=== PATIENT | female | born 1980 | race African-American/Black ===

== ENCOUNTER 2016-09-23 22:50 | Emergency (ER) | payer OTHER ==
[~2016-09-23] VITALS: Ht 165.1 cm; Wt 81.6 kg
[~2016-09-23 22:50] MED LIST: HYDR-971 PO; ORPH100T PO; PRED50TA PO
[2016-09-23] MEDS ORDERED: ORPHENADRINE CITRATE 60 MG/2 ML VIAL. IM ONE (23:30)
[2016-09-23] MEDS ORDERED: KETOROLAC TROMETHAMINE 60 MG/2 ML INJ. IM ONE (23:30)
[2016-09-23] MEDS ORDERED: METH-37 PO (23:59)
[2016-09-23] MEDS ORDERED: NABU500T PO (23:59)
[2016-09-23] MEDS ORDERED: PRED20TA PO (23:59)
--- NOTE | 2016-09-24 | PHYS DOC ---
Past Medical History Past Medical History: No Pertinent History, Other Additional Past Medical Histor: cronic back pain Past Surgical History: Alcohol Use: Occasionally Drug Use: None Adult General Chief Complaint Chief Complaint: BACK PAIN - NO INJURY HPI HPI Patient is a 36 year old female brought by EMS from home with the complaint of back pain. Patient's boyfriend called 911. They don't have a car and he had to stay home with her baby. Patient states she has had back pain ever since she had an epidural when she had her baby who is now 8 years old. She at first didn' t know what she did that might have flared up her pain, but as we discussed it, she did say she moved her mattress a few days ago. She's been having worsened pain in her low back, going down into her buttocks and down the back of her legs bilaterally. The patient states "I can't walk" but the paramedics state that the patient walked from in her house and assisted out to get onto their cart. The patient has not taken anything for pain. She denies UTI symptoms. She denies possibility of . Review of Systems Review of Systems Constitutional: Denies fever or chills [] Respiratory: Denies cough or shortness of breath [] GI: Denies abdominal pain, nausea, vomiting, bloody stools or diarrhea [] : Denies dysuria or hematuria [] Musculoskeletal: As in history of present illness Current Medications Current Medications Current Medications Medications (Trade) Dose Ordered Sig/Devorah Start Time Stop Time Status Last Admin Dose Admin Ketorolac Tromethamine (Toradol Im) 60 mg 1X ONCE 09/23/16 23:30 09/23/16 23:31 DC 09/23/16 23:22 60 MG Orphenadrine Citrate (Norflex) 60 mg 1X ONCE 09/23/16 23:30 09/23/16 23:31 DC 09/23/16 23:25 60 MG Prednisone (Prednisone) 50 mg 1X ONCE 09/24/16 00:00 09/24/16 00:01 UNV Allergies Allergies Allergies Coded Allergies Type Severity Reaction Last Updated Verified No Known Drug Allergies 04/24/14 No Physical Exam Physical Exam Constitutional: Well developed, well nourished, crying loudly, alert, mentating normally, moving all 4 extremities well without difficulty HENT: Normocephalic, atraumatic, bilateral external ears normal, nose normal. [] Eyes: conjunctiva normal, no discharge. [] Neck: Normal range of motion, no stridor. [] Cardiovascular:Heart rate regular rhythm, no murmur [] Lungs & Thorax: Bilateral breath sounds clear to auscultation [] Abdomen: Bowel sounds normal, soft, no tenderness, no masses, no pulsatile masses. [] Skin: Warm, dry, no erythema, no rash. [] Back: No tenderness, no CVA tenderness. Patient indicates area of pain over the low lumbar/presacral area, there is no overlying skin abnormality or swelling, nontender to palpation. Also indicates the area of pain to the mid but I asked bilaterally, no abnormality noted. Extremities: No tenderness, no cyanosis, no clubbing, ROM intact, no edema. DTRs 2 over 4 at both knees. Strength is 5 over 5 and equal bilaterally with movement of both lower extremities including dorsiflexion of the great toe. Neurologic: Alert and oriented X 3, normal motor function, normal sensory function, no focal deficits noted. [] Current Patient Data Vital Signs Vital Signs Date Time Temp Pulse Resp B/P (MAP) Pulse Ox O2 Delivery O2 Flow Rate FiO2 09/23/16 22:52 98.2 77 18 114/69 (84) 98 Room Air 98.2 Lab Values Laboratory Tests Test 09/23/16 22:22 POC Urine HCG, Qualitative Hcg negative (Negative) EKG EKG [] Radiology/Procedures Radiology/Procedures [] Course & Med Decision Making Course & Med Decision Making Pertinent Labs and Imaging studies reviewed. (See chart for details) 36-year-old female with a history of back pain presents by EMS from home with exacerbation of back pain. Patient's neuro exam is normal with good strength and reflexes in both lower extremities. She is initially crying and sobbing in pain, but after she was given an injection of Toradol and Norflex and wrapped up in some warm blankets, she curled up on the cart and appeared much more comfortable. She stated that she is sleepy. I was able to talk to the patient some more and I believe that some of her pain is likely radiculopathy. We will treat that with a dose of oral prednisone. See instructions for plan. [] Dragon Disclaimer Dragon Disclaimer This electronic medical record was generated, in whole or in part, using a voice recognition dictation system. Departure Departure Impression: Primary Impression: Back pain Additional Impression: Sciatica Disposition: 01 HOME, SELF-CARE Condition: IMPROVED Referrals: NO PCP (PCP) Patient Instructions: Back Pain, Adult, [id number] Additional Instructions: Relafen as directed, which is a strong anti-inflammatory pain reliever. Norflex as directed, which is a muscle relaxer. Prednisone as directed, which helps with nerve pain, it is a strong anti- inflammatory. Use ice 15-20 minutes out of every 1-2 hours. Scripts Methocarbamol (ROBAXIN) 500 Mg Tablet 1 TAB PO BID for back pain, #20 TAB Prov: TIEN ZEPEDA MD 09/23/16 Prednisone (PREDNISONE) 20 Mg Tablet 40 MG PO DAILY for back pain for 5 Days, #10 TAB Prov: TIEN ZEPEDA MD 09/23/16 Nabumetone (NABUMETONE) 500 Mg Tablet 1 TAB PO BID for back pain, #20 TAB Prov: TIEN ZEPEDA MD 09/23/16 Problem Qualifiers TIEN ZEPEDA MD Sep 23, 2016 23:59
[2016-09-24 00:30] VITALS: BP 118/67
[2016-09-24] MEDS ORDERED: predniSONE 20 MG TABLET PO ONE (00:30)
== END 2016-09-24 00:40 | disposition home or self-care (01) ==
LOC: ER 22:50
DX: M54.40 Lumbago with sciatica, unspecified side (principal); G89.29 Other chronic pain
CPT/HCPCS: 81025; 96372; 99284; J1885; J2360; J7512

== ENCOUNTER 2019-02-03 07:03 | Emergency (ER) | payer SELFPAY ==
[~2019-02-03] VITALS: Ht 165.1 cm; Wt 81.6 kg
[~2019-02-03 07:03] MED LIST changes: +HYDR-3164 PO; -HYDR-971 PO; +METH-37 PO; +NABU500T PO; +PRED20TA PO
[2019-02-03 07:59] LABS: BASO # 0.1 x10^3/uL (0.0-0.2); BASO % 1 % (0-3); EOS # 0.2 x10^3/uL (0.0-0.7); EOS % 2 % (0-3); HEMATOCRIT 41.6 % (36.0-47.0); HEMOGLOBIN 14.2 g/dL (12.0-15.5); LYMPH # 3.6 x10^3/uL (1.0-4.8); LYMPH % 42 % (24-48); MEAN CORPUSCULAR HEMOGLOBIN 32 pg (25-35); MEAN CORPUSCULAR HGB CONC 34 g/dL (31-37); MEAN CORPUSCULAR VOLUME 93 fL (79-100); MONO # 0.7 x10^3/uL (0.0-1.1); MONO % 8 % (0-9); NEUT % 47 % (31-73); PLATELET COUNT 391 x10^3/uL (140-400); RED BLOOD COUNT 4.46 x10^6/uL (3.50-5.40); RED CELL DISTRIBUTION WIDTH 13.4 % (11.5-14.5); WHITE BLOOD COUNT 8.6 x10^3/uL (4.0-11.0)
[2019-02-03] MEDS ORDERED: IV NORMAL SALINE 1000ML BAG 1,000 ML IV ONE (08:00)
--- NOTE | 2019-02-03 08:05 | RAD ---
AP chest. HISTORY: Dizziness, right-sided facial numbness AP view was taken of the chest. Lungs are clear. Heart is normal in size. There is no pleural effusion. IMPRESSION: 1. No acute chest disease. Electronically signed by: Leonardo Hastings MD (02/03/2019 8:02 AM) [id number]
--- NOTE | 2019-02-03 08:07 | RAD ---
CT CODE STROKE HEAD WO Clinical indications: Facial numbness and dizziness COMPARISON: None available. Technique: Noncontrast axial cross sectional scanning of the head was performed. PQRS compliance Statement One or more of the following individualized dose reduction techniques were utilized for this study: 1. Automated exposure control 2. Adjustment of the mA and/or kV according to patient size 3. Use of iterative reconstruction technique Findings: No acute intracranial hemorrhage or midline shift or mass-effect or hydrocephalus or extra-axial fluid collection is seen. No focal hypodense area or sulci effacement is seen to indicate an acute infarct or edema radiographically. No skull fracture or pneumocephalus is seen. No opacification of the mastoid sinuses or the middle ear cavities or the paranasal sinuses is seen. The maxillary sinuses are not completely seen in this study. Impression: No acute intracranial abnormality is seen. FOR INTERNAL CODING PURPOSES Critical result: Findings discussed with Dr. RUCHI NELSON at 02/03/2019 8:05 AM. RESULT CODE: (C) Electronically signed by: Erick Morales MD (02/03/2019 8:05 AM) [facility]
[2019-02-03 08:09] LABS: PROTHROMBIN TIME PATIENT 12.3 SEC (11.7-14.0)
[2019-02-03 08:11] LABS: ALBUMIN 3.3 g/dL (3.4-5.0); ALBUMIN/GLOBULIN RATIO 0.8 (1.0-1.7); CALCIUM 8.6 mg/dL (8.5-10.1); GFR 75.1; POTASSIUM 3.8 mmol/L (3.5-5.1); TOTAL BILIRUBIN 0.3 mg/dL (0.2-1.0); TOTAL PROTEIN 7.4 g/dL (6.4-8.2)
[2019-02-03 08:29] LABS: BILIRUBIN,URINE NEGATIVE (NEG); CLARITY,URINE CLEAR; COLOR,URINE YELLOW; NITRITE,URINE NEGATIVE (NEG); PROTEIN,URINE NEGATIVE (NEG-TRACE)
[2019-02-03] MEDS ORDERED: ONDANSETRON PF 4 MG/2 ML VIAL. IV ONE (08:30)
[2019-02-03 08:36] LABS: BARBITURATES NEG (NEG); BENZODIAZEPINES NEG (NEG); CANNABINOIDS POS (NEG); COCAINE NEG (NEG); METHADONE NEG (NEG); OPIATES NEG (NEG); PHENCYCLIDINE NEG (NEG)
[2019-02-03 08:39] LABS: AMPHETAMINE/METHAMPHETAMINE NEG (NEG)
[2019-02-03 08:43] LABS: BACTERIA,URINE 0 /HPF (0-FEW); RBC,URINE 0 /HPF (0-2); SQUAMOUS EPITHELIAL CELL,UR FEW /LPF; WBC,URINE OCC /HPF (0-4)
[2019-02-03 10:30] VITALS: BP 117/73
[2019-02-03] MEDS ORDERED: MECL25TA3 PO (10:30)
[2019-02-03] MEDS ORDERED: ONDA4TAB7 PO (10:30)
--- NOTE | 2019-02-03 10:30 | PHYS DOC ---
Past Medical History Past Medical History: No Pertinent History, Other Additional Past Medical Histor: chronic back pain Past Surgical History: Alcohol Use: Occasionally Drug Use: Marijuana Adult General Chief Complaint Chief Complaint: DIZZY/LIGHT HEADED HPI HPI Patient is a 38 year old female patient with history of chronic back pain who presents via EMS with complaint of dizziness and numbness. Patient states she woke up at her usual time this morning and felt dizzy with changing the position of her head and a standing up and also has numbness in the right side of her face and tongue as a constant problem without chest pain, shortness of breath, extremity weakness or numbness, confusion, speech problem, history of head injury or the same problem previously. EMS reported that patient had anxiety and panic attack. Patient avoids of talking. Code stroke was activated at arrival of patient to emergency room. Review of Systems Review of Systems Constitutional: Denies fever or chills [] Eyes: Denies change in visual acuity, redness, or eye pain [] HENT: Denies nasal congestion or sore throat [] Respiratory: Denies cough or shortness of breath [] Cardiovascular: No additional information not addressed in HPI [] GI: Denies abdominal pain, vomiting, bloody stools or diarrhea , reports nausea[] : Denies dysuria or hematuria [] Musculoskeletal: Denies back pain or joint pain [] Integument: Denies rash or skin lesions [] Neurologic: Denies headache, focal weakness, reports sensory changes and dizziness Endocrine: Denies polyuria or polydipsia [] All other systems were reviewed and found to be within normal limits, except as documented in this note. Current Medications Current Medications Current Medications Medications (Trade) Dose Ordered Sig/Devorah Start Time Stop Time Status Last Admin Dose Admin Lorazepam (Ativan Inj) 1 mg 1X ONCE 02/03/19 08:15 02/03/19 08:16 DC 02/03/19 08:32 1 MG Ondansetron HCl (Zofran) 4 mg 1X ONCE 02/03/19 08:30 02/03/19 08:31 DC 02/03/19 08:30 4 MG Sodium Chloride 1,000 ml @ 1,000 mls/hr 1X ONCE 02/03/19 08:00 02/03/19 08:59 DC 02/03/19 08:07 1,000 MLS/HR Allergies Allergies Allergies Coded Allergies Type Severity Reaction Last Updated Verified No Known Drug Allergies 04/24/14 No Physical Exam Physical Exam Constitutional: Well developed, well nourished, mild distress, non-toxic appearance. [] HENT: Normocephalic, atraumatic. Eyes: PERRLA, EOMI, conjunctiva normal, no discharge. [] Neck: Normal range of motion, no tenderness, supple, no stridor. [] Cardiovascular:Heart rate regular rhythm, no murmur [] Lungs & Thorax: Bilateral breath sounds clear to auscultation [] Abdomen: Bowel sounds normal, soft, no tenderness, no masses, no pulsatile masses. [] Skin: Warm, dry, no erythema, no rash. [] Back: No tenderness, no CVA tenderness. [] Extremities: No tenderness, no cyanosis, no clubbing, ROM intact, no edema. [] Neurologic: Alert and oriented X 3, no focal deficits noted. NIHS-1 with subjective numbness of right side of face [] Psychologic: Affect anxious, judgement normal, mood normal. [] Current Patient Data Vital Signs Vital Signs Date Time Temp Pulse Resp B/P (MAP) Pulse Ox O2 Delivery O2 Flow Rate FiO2 02/03/19 08:30 74 100 02/03/19 07:04 97.5 14 130/82 (98) Room Air 97.5 Lab Values Laboratory Tests Test 02/03/19 07:25 02/03/19 07:41 02/03/19 08:22 02/03/19 08:23 White Blood Count 8.6 x10^3/uL (4.0-11.0) Red Blood Count 4.46 x10^6/uL (3.50-5.40) Hemoglobin 14.2 g/dL (12.0-15.5) Hematocrit 41.6 % (36.0-47.0) Mean Corpuscular Volume 93 fL (79-100) Mean Corpuscular Hemoglobin 32 pg (25-35) Mean Corpuscular Hemoglobin Concent 34 g/dL (31-37) Red Cell Distribution Width 13.4 % (11.5-14.5) Platelet Count 391 x10^3/uL (140-400) Neutrophils (%) (Auto) 47 % (31-73) Lymphocytes (%) (Auto) 42 % (24-48) Monocytes (%) (Auto) 8 % (0-9) Eosinophils (%) (Auto) 2 % (0-3) Basophils (%) (Auto) 1 % (0-3) Neutrophils # (Auto) 4.0 x10^3/uL (1.8-7.7) Lymphocytes # (Auto) 3.6 x10^3/uL (1.0-4.8) Monocytes # (Auto) 0.7 x10^3/uL (0.0-1.1) Eosinophils # (Auto) 0.2 x10^3/uL (0.0-0.7) Basophils # (Auto) 0.1 x10^3/uL (0.0-0.2) Prothrombin Time 12.3 SEC (11.7-14.0) Prothrombin Time INR 0.9 (0.8-1.1) Activated Partial Thromboplast Time 26 SEC (24-38) Sodium Level 140 mmol/L (136-145) Potassium Level 3.8 mmol/L (3.5-5.1) Chloride Level 104 mmol/L (98-107) Carbon Dioxide Level 22 mmol/L (21-32) Anion Gap 14 (6-14) Blood Urea Nitrogen 11 mg/dL (7-20) Creatinine 1.0 mg/dL (0.6-1.0) Estimated GFR (Cockcroft-Gault) 75.1 BUN/Creatinine Ratio 11 (6-20) Glucose Level 168 mg/dL (70-99) H Calcium Level 8.6 mg/dL (8.5-10.1) Total Bilirubin 0.3 mg/dL (0.2-1.0) Aspartate Amino Transferase (AST) 14 U/L (15-37) L Alanine Aminotransferase (ALT) 13 U/L (14-59) L Alkaline Phosphatase 77 U/L (46-116) Troponin I Quantitative < 0.017 ng/mL (0.000-0.055) Total Protein 7.4 g/dL (6.4-8.2) Albumin 3.3 g/dL (3.4-5.0) L Albumin/Globulin Ratio 0.8 (1.0-1.7) L Glucose (Fingerstick) 181 mg/dL (70-99) H Urine Collection Type U cath Urine Color Yellow Urine Clarity Clear Urine pH 6.0 Urine Specific [place] 1.025 Urine Protein Negative mg/dL (NEG-TRACE) Urine Glucose (UA) Negative mg/dL (NEG) Urine Ketones (Stick) Trace mg/dL (NEG) Urine Blood Moderate (NEG) Urine Nitrite Negative (NEG) Urine Bilirubin Negative (NEG) Urine Urobilinogen Dipstick 1.0 mg/dL (0.2 mg/dL) Urine Leukocyte Esterase Negative (NEG) Urine RBC 0 /HPF (0-2) Urine WBC Occ /HPF (0-4) Urine Squamous Epithelial Cells Few /LPF Urine Bacteria 0 /HPF (0-FEW) Urine Opiates Screen Neg (NEG) Urine Methadone Screen Neg (NEG) Urine Barbiturates Neg (NEG) Urine Phencyclidine Screen Neg (NEG) Urine Amphetamine/Methamphetamine Neg (NEG) Urine Benzodiazepines Screen Neg (NEG) Urine Cocaine Screen Neg (NEG) Urine Cannabinoids Screen Pos (NEG) Urine Ethyl Alcohol Neg (NEG) POC Urine HCG, Qualitative Hcg negative (Negative) Laboratory Tests 02/03/19 07:25 Laboratory Tests 02/03/19 07:25 EKG EKG EKG interpreted by me. EKG at 0803 showed normal sinus rhythm at rate of 63, no acute ST and T-wave abnormalities. Radiology/Procedures Radiology/Procedures [][address] [id number] IMAGING REPORT Signed PATIENT: CRISS HOBBS ACCOUNT: [id number] : 1980 LOCATION: ER AGE: 38 SEX: F EXAM STATUS: REG ER ORD. PHYSICIAN: RUCHI NELSON MD REASON: dizziness and right-sided facial numbness PROCEDURE: PORTABLE CHEST 1V AP chest. HISTORY: Dizziness, right-sided facial numbness AP view was taken of the chest. Lungs are clear. Heart is normal in size. There is no pleural effusion. IMPRESSION: 1. No acute chest disease. Electronically signed by: Leonardo Hastings MD (02/03/2019 8:02 AM) [facility] DICTATED and SIGNED BY: LEONARDO HASTINGS MD DATE: 02/03/19 0802 [facility] [address] [place] [address] IMAGING REPORT Signed PATIENT: CRISS HOBBS ACCOUNT: [id number] : 1980 LOCATION: ER AGE: 38 SEX: F EXAM STATUS: REG ER ORD. PHYSICIAN: RUCHI NELSON MD REASON: facial numbness and dizziness PROCEDURE: CT CODE STROKE HEAD WO CT CODE STROKE HEAD WO Clinical indications: Facial numbness and dizziness COMPARISON: None available. Technique: Noncontrast axial cross sectional scanning of the head was performed. PQRS compliance Statement One or more of the following individualized dose reduction techniques were utilized for this study: 1. Automated exposure control 2. Adjustment of the mA and/or kV according to patient size 3. Use of iterative reconstruction technique Findings: No acute intracranial hemorrhage or midline shift or mass-effect or hydrocephalus or extra-axial fluid collection is seen. No focal hypodense area or sulci effacement is seen to indicate an acute infarct or edema radiographically. No skull fracture or pneumocephalus is seen. No opacification of the mastoid sinuses or the middle ear cavities or the paranasal sinuses is seen. The maxillary sinuses are not completely seen in this study. Impression: No acute intracranial abnormality is seen. FOR INTERNAL CODING PURPOSES Critical result: Findings discussed with Dr. RUCHI NELSON at 02/03/2019 8:05 AM. RESULT CODE: (C) Electronically signed by: Elena Morales MD (02/03/2019 8:05 AM) [facility] DICTATED and SIGNED BY: ELENA MORALES MD DATE: 02/03/19804 Course & Med Decision Making Course & Med Decision Making Pertinent Labs and Imaging studies reviewed. (See chart for details) Evaluation of patient in ER showed 38-year-old male patient brought in by EMS with complaining of dizziness and facial numbness that improved after Ativan. Patient had unremarkable physical exam with NIHS of 1 because of subjective paresthesias of face. Patient was treated with IV fluids, Ativan and Zofran with improvement of her condition. Plan to discharge patient home with diagnosis of benign positional vertigo. Dragon Disclaimer Dragon Disclaimer This electronic medical record was generated, in whole or in part, using a voice recognition dictation system. Departure Departure Impression: Primary Impression: Benign positional vertigo Additional Impressions: Nausea Paresthesias Marijuana abuse Disposition: HOME, SELF-CARE (at 1028) Condition: IMPROVED Referrals: NO PCP (PCP) Patient Instructions: Benign Positional Vertigo Additional Instructions: Drink plenty of liquids Follow-up with your primary care physician in 3-5 days Return to ER if not getting better Scripts Ondansetron Hcl (ZOFRAN) 4 Mg Tablet 1 TAB PO PRN Q6-8HRS for nausea, #12 TAB Prov: RUCHI NELSON MD 02/03/19 Meclizine Hcl (MECLIZINE HCL) 25 Mg Tablet 1 TAB PO TID for dizziness, #20 TAB Prov: RUCHI NELSON MD 02/03/19 Problem Qualifiers Primary Impression: Benign positional vertigo Laterality: unspecified laterality Qualified Codes: H81.10 - Benign paroxysmal vertigo, unspecified ear RUCHI NELSON MD Feb 03, 2019 10:30
--- NOTE | 2019-02-03 14:21 | EKG ---
[facility] [address] [place] [address] Test Date: 2019-02-03 Test Time: 08:03:28 Pat Name: CRISS HOBBS Department: Room: Gender: F Manager Lean: : 1980 Requested By: RUCHI NELSON Order Number: [id number] Reading MD: Measurements Intervals [place] Rate: 63 P: HI: QRS: 16 QRSD: 86 T: 17 QT: 440 QTc: 454 Interpretive Statements IRREGULAR RHYTHM, NO P-WAVE FOUND OTHERWISE NORMAL ECG RI6.01 No previous ECG available for comparison
== END 2019-02-03 10:40 | disposition home or self-care (01) ==
LOC: ER 07:03
DX: H81.10 Benign paroxysmal vertigo, unspecified ear (principal); R20.2 Paresthesia of skin; R42 Dizziness and giddiness; R11.0 Nausea; M54.9 Dorsalgia, unspecified; F12.90 Cannabis use, unspecified, uncomplicated; G89.29 Other chronic pain; Z98.890 Other specified postprocedural states; Z79.899 Other long term (current) drug therapy
CPT/HCPCS: 36415; 70450; 71045; 80053; 80307; 81001; 81025; 82962; 84484; 85025; 85610; 85730; 93005; 96361; 96374; 96375; 99285; J2060; J2405; J7030